=== PATIENT | male | born 1970 | race Caucasian/White ===

== ENCOUNTER → 2017-12-15 | Outpatient (CLI) | payer OTHER ==
[~2017-12-15] MED LIST: KET10 PO; LOR5/325 PO; LOSA25TA50 PO
[2017-12-15 09:25] LABS: PLATELET COUNT, AUTOMATED 218 K/uL (150-450)
[2017-12-15 09:39] LABS: LDL CHOLESTEROL 102 mg/dl
== END ==
LOC: LAB 08:41
PROVIDERS: ATTEND Nurse Practitioner Family
DX: I10 Essential (primary) hypertension (principal); M10.9 Gout, unspecified
CPT/HCPCS: 36415; 82040; 82247; 82310; 82374; 82435; 82465; 82565; 82947; 83718; 84075; 84132; 84155; 84295; 84443; 84450; 84460; 84478; 84520; 84550; 85025